=== PATIENT | female | born 1995 | race Caucasian/White ===

== ENCOUNTER 2018-01-19 14:19 | Emergency (ER) | payer BC, OTHER ==
[~2018-01-19] VITALS: Ht 157.5 cm; Wt 59.0 kg
[2018-01-19] MEDS ORDERED: KEPPRA500 MG (14:30)
[2018-01-19] MEDS ORDERED: KEFLEX500 MG PO (15:52)
== END 2018-01-19 16:10 | disposition home or self-care (01) ==
LOC: ED 14:19
PROC: 0HQHXZZ Repair Right Upper Leg Skin, External Approach (ICD-10-PCS; principal; 2018-01-19)
DX: S71.131A Puncture wound without foreign body, right thigh, initial encounter (principal); S61.411A Laceration without foreign body of right hand, initial encounter; S00.83XA Contusion of other part of head, initial encounter; Z88.0 Allergy status to penicillin; Z79.899 Other long term (current) drug therapy; V86.59XA Driver of other special all-terrain or other off-road motor vehicle injured in nontraffic accident, initial encounter
CPT/HCPCS: 12004; 99284

== ENCOUNTER 2018-01-22 11:32 | Emergency (ER) | payer BC, OTHER ==
[~2018-01-22] VITALS: Ht 157.5 cm; Wt 59.0 kg
[~2018-01-22 11:32] MED LIST: KEFLEX500 MG PO; KEPPRA500 MG
== END 2018-01-22 12:21 | disposition home or self-care (01) ==
LOC: ED 11:32
DX: S71.111D Laceration without foreign body, right thigh, subsequent encounter (principal); X58.XXXD Exposure to other specified factors, subsequent encounter; Z88.0 Allergy status to penicillin; Z79.2 Long term (current) use of antibiotics
CPT/HCPCS: 99282